=== PATIENT | male | born 1990 | race Caucasian/White ===

== ENCOUNTER 2018-06-13 18:55 | Emergency (ER) | payer OTHER ==
--- NOTE | 2018-06-13 19:32 | PDOC ---
Rapid Medical Evaluation Time Seen by Provider: 06/13/18 19:30 Medical Evaluation: Allergies Allergy/AdvReac Type Severity Reaction Status Date / Time No Known Allergies Allergy Verified 01/19/16 21:08 06/13/18 19:30 Patient c/o: rlq pain, vomiting diarrhea X 2 DAYS, no fever Patient on brief exam: vss, rlq pain Patient ordered for: labs, ua, lactic acid The patient will proceed to the ED Discharge Disposition - Diagnosis Abdominal pain - Referrals - Patient Instructions - Post Discharge Activity
[2018-06-13 19:33] VITALS: BMI 21.9
--- NOTE | 2018-06-13 20:33 | PDOC ---
History of Present Illness - General Chief Complaint: Pain, Acute Stated Complaint: ABD PAIN Time Seen by Provider: 06/13/18 19:30 - History of Present Illness Initial Comments: 06/13/18 20:47 28m with no pmh presents to the ED with LRQ pain since this morning. He also complains of nausea, vomiting and diarrhea for the past couple days. Past History - Past Medical History Allergies/Adverse Reactions: Allergies Allergy/AdvReac Type Severity Reaction Status Date / Time No Known Allergies Allergy Verified 06/13/18 19:33 Home Medications: Ambulatory Orders oxyCODONE SR [Oxycontin] 10 mg PO Q4H PRN 01/19/16 - Immunization History Immunization Up to Date: Yes - Suicide/Smoking/Psychosocial Hx Smoking History: Never smoked Have you smoked in the past 12 months: No Information on smoking cessation initiated: No Hx Alcohol Use: No Drug/Substance Use Hx: No Substance Use Type: None Review of Systems - Review of Systems Able to Perform ROS?: Yes Is the patient limited Stateless proficient: No Constitutional: No: Symptoms Reported HEENTM: No: Symptoms Reported Respiratory: No: Symptoms reported Cardiac (ROS): No: Symptoms Reported ABD/GI: Yes: See HPI : No: Symptoms Reported All Other Systems: Reviewed and Negative *Physical Exam - Vital Signs Last Vital Signs Temp Pulse Resp BP Pulse Ox 98.7 F 86 16 125/79 99 06/13/18 19:31 06/13/18 19:31 06/13/18 19:31 06/13/18 19:31 06/13/18 19:31 - Physical Exam General Appearance: Yes: Nourished, Appropriately Dressed, Thin HEENT: positive: EOMI, MARIA TERESA, Normal ENT Inspection Respiratory/Chest: positive: Lungs Clear, Normal Breath Sounds. negative: Chest Tender, Respiratory Distress Cardiovascular: positive: Regular Rhythm, Regular Rate, S1, S2 Gastrointestinal/Abdominal: positive: Normal Bowel Sounds, Tender, Flat, Soft ( tender), Other (positive psoas sign, pain upon jumping, anorexia) Male Genitalia: positive: normal genitalia. negative: testicular tenderness, testicular mass Moderate Sedation - Procedure Monitoring Vital Signs: Procedure Monitoring Vital Signs Temperature 98.7 F 06/13/18 19:31 Pulse Rate 86 06/13/18 19:31 Respiratory Rate 16 06/13/18 19:31 Blood Pressure 125/79 06/13/18 19:31 O2 Sat by Pulse Oximetry (%) 99 06/13/18 19:31 ED Treatment Course - LABORATORY CBC & Chemistry Diagram: 06/13/18 20:38 06/13/18 20:38 Medical Decision Making - Medical Decision Making 06/13/18 21:15 appendicitis vs viral gastroenteritis. Will obtain basic labs, , will obtain CT scan to r/o appi. Otherwise will treat symptoms as viral gasto. 06/13/18 21:55 Unable to visualize appendix on POCUS. Pending CT abdomen and pelvis with PO and IV contrast. Patient signed out to Dr. Mariano *DC/Admit/Observation/Transfer Diagnosis at time of Disposition: Abdominal pain - Referrals Referrals: ON STAFF,NOT [Primary Care Provider] - - Patient Instructions - Post Discharge Activity
--- NOTE | 2018-06-13 20:54 | PDOC ---
Attending Attestation - HPI HPI: 06/13/18 21:24 The patient is a 28 year old male, with no significant past medical history, who presents to the emergency department with, RLQ pain, nausea, vomiting, and diarrhea. Patient endorses that her nausea, vomiting, and diarrhea have been ongoing for 2 days now, however, her RLQ pain onset today. He denies any recent fevers, chills, headache or dizziness. He denies any recent chest pain or shortness of breath. He denies any recent dysuria, frequency, urgency or hematuria. Allergies: NKDA <Sybil Gunter - Last Filed: 06/13/18 21:24> - Resident Resident Name: Orlin Juarez - ED Attending Attestation I have performed the following: I have examined & evaluated the patient, The case was reviewed & discussed with the resident, I agree w/resident's findings & plan, Exceptions are as noted - HPI HPI: 06/13/18 20:54 28 yo male p/w RLQ pain today, also has had diarrhea - Physicial Exam PE: 06/13/18 21:00 wnwd 28 yo male p/w RLQ pain head ncat eyes eomi neck supple, no bruits lungs cta b/l cvs [id number] abd RLQ ++ tenderness no cva tenderness ext no edema neuro axox3,ambulatoy ,no focal neuro deficits skin warm and dry psych appropriate - Medical Decision Making 06/13/18 21:19 diff diag included gastroenteritis, appendicitis 06/14/18 00:46 ct scan of abd /pel is NEGATIVE for any acute surgical etiology imp gastroenteritis <Amparo Heredia - Last Filed: 06/14/18 00:47> Attestations - Attestations 06/13/18 21:25 Documentation prepared by Sybil Gunter, acting as administrative medical director for Amparo Heredia MD. <Sybil Gunter - Last Filed: 06/13/18 21:24>
[2018-06-13 21:02] LABS: EOS % 1.7 % (0-4.5); HEMATOCRIT 40.9 % (35.4-49); HEMOGLOBIN 14.6 GM/dL (11.7-16.9); MCH 32.3 pg (25.7-33.7); MCHC 35.6 g/dl (32.0-35.9); MEAN CELL VOLUME 90.8 fl (80-96); MEAN PLT VOLUME 7.7 fl (7.5-11.1); MONO % 6.9 % (3.8-10.2); NEUT % 62.4 % (42.8-82.8); PLATELET COUNT 325 K/MM3 (134-434); RBC 4.51 M/mm3 (4.00-5.60); RDW 13.6 % (11.9-15.9); WHITE BLOOD COUNT 9.4 K/mm3 (4.0-10.0)
[2018-06-13 21:28] LABS: ALK PHOS 91 U/L (45-117); ANION GAP 7 MMOL/L (8-16); BILIRUBIN,TOTAL 0.3 mg/dL (0.2-1); BLOOD UREA NITROGEN 15 mg/dL (7-18); CALCIUM 8.7 mg/dL (8.5-10.1); CHLORIDE 104 mmol/L (98-107); CO2 28 mmol/L (21-32); CREATININE 0.8 mg/dL (0.55-1.3); GLUCOSE,RANDOM 85 mg/dL (74-106); MAGNESIUM 2.5 mg/dL (1.8-2.4); POTASSIUM 3.6 mmol/L (3.5-5.1); SGOT/AST 19 U/L (15-37); SGPT/ALT 25 U/L (13-61); SODIUM 139 mmol/L (136-145); TOT PROT 7.2 g/dl (6.4-8.2)
--- NOTE | 2018-06-13 23:20 | PDOC ---
*Physical Exam - Vital Signs Last Vital Signs Temp Pulse Resp BP Pulse Ox 98.7 F 86 16 125/79 99 06/13/18 19:31 06/13/18 19:31 06/13/18 19:31 06/13/18 19:31 06/13/18 19:31 - Physical Exam General Appearance: Yes: Nourished HEENT: positive: MARIA TERESA Respiratory/Chest: positive: Lungs Clear, Normal Breath Sounds Cardiovascular: positive: Regular Rhythm, Regular Rate, S1, S2 Gastrointestinal/Abdominal: positive: Normal Bowel Sounds, Tender (rlq right mid quad ttp. ) Musculoskeletal: positive: Normal Inspection Extremity: positive: Normal Capillary Refill Integumentary: positive: Normal Color, Dry, Warm Neurologic: positive: Fully Oriented, Alert, Normal Mood/Affect ED Treatment Course - LABORATORY CBC & Chemistry Diagram: 06/13/18 20:38 06/13/18 20:38 - ADDITIONAL ORDERS Additional order review: Laboratory Results 06/13/18 06/13/18 06/13/18 20:38 20:38 20:38 Sodium 139 Potassium 3.6 Chloride 104 Carbon Dioxide 28 Anion Gap 7 L BUN 15 Creatinine 0.8 Creat Clearance w eGFR > 60 Random Glucose 85 Lactic Acid 0.6 Calcium 8.7 Magnesium 2.5 H Total Bilirubin 0.3 AST 19 ALT 25 Alkaline Phosphatase 91 Total Protein 7.2 Albumin 4.0 Lipase 115 06/13/18 20:38 RBC 4.51 MCV 90.8 MCHC 35.6 RDW 13.6 MPV 7.7 Neutrophils % 62.4 Lymphocytes % 28.0 D Monocytes % 6.9 Eosinophils % 1.7 D Basophils % 1.0 D Medical Decision Making - Medical Decision Making 06/13/18 23:17 28 yo male here with c/o n/v , anorexia and rlq pain. on exam pt with rlq ttp. pt seen and examined with dr. ramirez. focused ED ultrasound RUQ performed, indication right sided abd pain gallbladder scanned in two planes. no wall thickening, no stones, no cbd dilation. no pericholecystic fluid. neg sonographic rizo's. impression: normal gallbladder. rlq scanned using linear high frequency probe, appendix not visualized. impression: unable to visualize appendix. plan ct a/p *DC/Admit/Observation/Transfer Diagnosis at time of Disposition: Abdominal pain - Referrals Referrals: ON STAFF,NOT [Primary Care Provider] - - Patient Instructions - Post Discharge Activity
[2018-06-13 23:45] LABS: URINE APPEARANCE CLEAR; URINE BILIRUBIN NEGATIVE (<2.0 mg/dL); URINE COLOR LTYELLOW; URINE GLUCOSE (UA) NEGATIVE (NEGATIVE); URINE KETONE NEGATIVE (NEGATIVE); URINE LEUK ESTERASE NEGATIVE (NEGATIVE); URINE NITRITE NEGATIVE (NEGATIVE); URINE PROTEIN NEGATIVE (NEGATIVE); URINE UROBILINOGEN NEGATIVE mg/dL (0.2-1.0)
[2018-06-14 00:01] LABS: EPI CELLS RARE /HPF (FEW); URINE MUCUS RARE
--- NOTE | 2018-06-14 00:56 | PDOC ---
*Physical Exam - Vital Signs Last Vital Signs Temp Pulse Resp BP Pulse Ox 98.7 F 86 16 125/79 99 06/13/18 19:31 06/13/18 19:31 06/13/18 19:31 06/13/18 19:31 06/13/18 19:31 ED Treatment Course - LABORATORY CBC & Chemistry Diagram: 06/13/18 20:38 06/13/18 20:38 - ADDITIONAL ORDERS Additional order review: Laboratory Results 06/13/18 06/13/18 06/13/18 23:34 20:38 20:38 Sodium Potassium Chloride Carbon Dioxide Anion Gap BUN Creatinine Creat Clearance w eGFR Random Glucose Lactic Acid 0.6 Calcium Magnesium Total Bilirubin AST ALT Alkaline Phosphatase Total Protein Albumin Lipase 115 Urine Color Ltyellow Urine Appearance Clear Urine pH 6.0 Ur Specific [place] 1.012 Urine Protein Negative Urine Glucose (UA) Negative Urine Ketones Negative Urine Blood 1+ H Urine Nitrite Negative Urine Bilirubin Negative Urine Urobilinogen Negative Ur Leukocyte Esterase Negative Urine WBC (Auto) 1 Urine RBC (Auto) None Ur Epithelial Cells Rare Urine Mucus Rare 06/13/18 20:38 Sodium 139 Potassium 3.6 Chloride 104 Carbon Dioxide 28 Anion Gap 7 L BUN 15 Creatinine 0.8 Creat Clearance w eGFR > 60 Random Glucose 85 Lactic Acid Calcium 8.7 Magnesium 2.5 H Total Bilirubin 0.3 AST 19 ALT 25 Alkaline Phosphatase 91 Total Protein 7.2 Albumin 4.0 Lipase Urine Color Urine Appearance Urine pH Ur Specific [place] Urine Protein Urine Glucose (UA) Urine Ketones Urine Blood Urine Nitrite Urine Bilirubin Urine Urobilinogen Ur Leukocyte Esterase Urine WBC (Auto) Urine RBC (Auto) Ur Epithelial Cells Urine Mucus 06/13/18 20:38 RBC 4.51 MCV 90.8 MCHC 35.6 RDW 13.6 MPV 7.7 Neutrophils % 62.4 Lymphocytes % 28.0 D Monocytes % 6.9 Eosinophils % 1.7 D Basophils % 1.0 D Medical Decision Making - Medical Decision Making 06/14/18 00:54 Findings of the CAT scan of the abdomen and pelvis with contrast. Negative for appendicitis. Normal appendix visualized No bowel obstruction or inflammation. Negative for diverticulitis or colitis. Small right renal cyst, otherwise normal kidneys, urinary tract urinary bladder. Slightly prominent prostate. Small low density liver lesions recommended follow-up. Normal saline No obvious gallbladder abnormalities. Normal pancreas. Normal, adrenal glands Osseous structures are intact. Impression gastroenteritis *DC/Admit/Observation/Transfer Diagnosis at time of Disposition: Gastroenteritis Abdominal pain Qualifiers: Abdominal location: right lower quadrant Qualified Code(s): R10.31 - Right lower quadrant pain - Discharge Dispostion Disposition: HOME Condition at time of disposition: Stable - Referrals Referrals: ON STAFF,NOT [Primary Care Provider] - - Patient Instructions Printed Discharge Instructions: DI for Abdominal Pain-Adult, DI for Viral Gastroenteritis -- Adult Additional Instructions: please advance your diet as tolerated ,start with fluids first then solid foods such as bananas,toast,rice,applesauce keep hydrated Return for any worsening symptoms - Post Discharge Activity
[2018-06-14 01:28] VITALS: BP 126/78; PULSE 77; TEMP 98.5
== END 2018-06-14 01:29 | disposition home or self-care (01) ==
LOC: JER 18:55
PROC: BF42ZZZ Ultrasonography of Gallbladder (ICD-10-PCS; principal; 2018-06-13)
DX: K52.9 Noninfective gastroenteritis and colitis, unspecified (principal)
CPT/HCPCS: 36415; 74177-TC; 76705; 80053; 81003; 81015; 83605; 83690; 83735; 85025; 99282-25